=== PATIENT | male | born 1970 | race Caucasian/White ===

== ENCOUNTER 2025-02-05 09:01 | Outpatient (CLI) | payer OTHER ==
[2025-02-05] MEDS ORDERED: Iopamidol 300 61% 100 ML VIAL FS ONE (14:14)
== END 2025-02-05 09:02 | disposition home or self-care (01) ==
LOC: CSHMRI 09:01
PROVIDERS: ATTEND Family Medicine
DX: R10.9 Unspecified abdominal pain (principal); M54.12 Radiculopathy, cervical region; M51.24 Other intervertebral disc displacement, thoracic region; K76.0 Fatty (change of) liver, not elsewhere classified; N20.0 Calculus of kidney; M48.02 Spinal stenosis, cervical region; M48.061 Spinal stenosis, lumbar region without neurogenic claudication; M48.07 Spinal stenosis, lumbosacral region
CPT/HCPCS: 72141; 72146; 72148; 74177; Q9967